=== PATIENT | male | born 1995 | race Caucasian/White ===

== ENCOUNTER 2019-02-18 07:49 | Emergency (ER) | payer MEDICAID ==
[2019-02-18] MEDS: IBUPROFEN 800 MG TABLET PO STA (08:34)
--- NOTE | 2019-02-18 08:36 | ED Physician Documentation ---
PD HPI CHEST PAIN - Stated complaint Stated Complaint: CP - Chief complaint Chief Complaint: Cardiac - History obtained from History obtained from: Patient - History of Present Illness Timing - onset: How many weeks ago (1) Timing - onset during: Other (hit chest on couch) Timing - duration: Weeks (1) Timing - details: Abrupt onset Pain level max: 6 Pain level now: 6 Quality: Sharp Location: Left chest Radiation: No: Jaw, Neck, Back, Abdominal, Left upper extremity, Right upper extremity, Other Improved by: Rest Worsened by: Movement, Palpation Associated symptoms: No: Shortness of air, Diaphoresis, Nausea, Vomiting, Feeling faint / dizzy, General Weakness, Palpitations, Cough Similar symptoms before: Has not had sx before Recently seen: Not recently seen - Additional information Additional information: states fell and hit chest "hard" on couch a week ago. chest wall tenderness since that time. Review of Systems Constitutional: denies: Fever, Chills Cardiac: denies: Palpitations Respiratory: denies: Cough GI: denies: Vomiting, Diarrhea Skin: denies: Rash Musculoskeletal: denies: Neck pain, Back pain Neurologic: denies: Headache PD PAST MEDICAL HISTORY - Past Medical History Past Medical History: Yes Psych: Anxiety, Post traumatic stress disorder - Past Surgical History Past Surgical History: No - Present Medications Home Medications: Ambulatory Orders Medication Instructions Recorded Confirmed Permethrin 5% Cream 60 gm TP ONCE #2 tub 05/27/13 diphenhydrAMINE HCl [Benadryl] 50 mg PO Q6HR PRN #30 capsule 05/27/13 Ibuprofen [Motrin] 800 mg PO Q8H PRN #30 tablet 02/18/19 - Allergies Allergies/Adverse Reactions: Allergies Allergy/AdvReac Type Severity Reaction Status Date / Time No Known Drug Allergies Allergy Verified 02/18/19 07:56 - Social History Does the pt smoke?: Yes Smoking Status: Current every day smoker Does the pt drink ETOH?: No Does the pt have substance abuse?: No Substance Use and Type: Marijuana - Immunizations Immunizations are current?: Yes - POLST Patient has POLST: No PD ED PE NORMAL - Vitals Vital signs reviewed: Yes - General General: Alert and oriented X 3, No acute distress, Well developed/nourished - HEENT HEENT: Atraumatic, PERRL, Moist mucous membranes - Neck Neck: Supple, no meningeal sign, No bony TTP - Cardiac Cardiac: RRR, Strong equal pulses - Respiratory Respiratory: No respiratory distress, Clear bilaterally - Abdomen Abdomen: Soft, Non tender, Non distended, Other (Palpation across the left anterior chest wall, approximately ribs 6 and 7. No crepitus. Reproduces his pain.) - Back Back: No spinal TTP - Derm Derm: Warm and dry - Extremities Extremities: Normal ROM s pain, No calf tenderness / cord - Neuro Neuro: Alert and oriented X 3 - Psych Psych: Normal mood, Normal affect Results - Vitals Vitals: Vital Signs - 24 hr 02/18/19 02/18/19 07:52 09:15 Temperature 36.7 C Heart Rate 62 70 Respiratory 15 15 Rate Blood Pressure 120/67 117/72 O2 Saturation 99 100 Oxygen O2 Source Room air - EKG (time done) 0800 Rate: Rate (enter#) (70) Rhythm: NSR Donie: Normal Intervals: Normal ID QRS: Normal Ischemia: ST elevation c/w repol - Rads (name of study) Ribs with chest x-ray Radiology: Prelim report reviewed, EMP read contemporaneously, See rad report (Normal) PD MEDICAL DECISION MAKING - ED course Complexity details: reviewed results, re-evaluated patient, considered differential, d/w patient Departure - Departure Disposition: 01 Home, Self Care Clinical Impression: Contusion of rib on left side Qualifiers: Encounter type: initial encounter Qualified Code(s): S20.212A - Contusion of left front wall of thorax, initial encounter Condition: Good Instructions: ED Contusion Chest Wall, ED Contusion Vs Minor Fx Rib Follow-Up: your,doctor in 1 week [Other] Prescriptions: Ibuprofen [Motrin] 800 mg PO Q8H PRN #30 tablet PRN Reason: PAIN &/OR FEVER Comments: Return if you worsen. Your xray does not show any acute abnormalities today. Discharge Date/Time: 02/18/19 09:39
--- NOTE | 2019-02-18 09:14 | XRAY Report ---
Reason: fall L rib pain Procedure Date: 02/18/2019 Accession Number: [id number] / [id number] Procedure: XR - Ribs w/PA Chest LT CPT Code: Final Report FULL RESULT: EXAM: LEFT RIB RADIOGRAPHY EXAM DATE: 02/18/2019 08:50 AM. CLINICAL HISTORY: Fall onto anterior left chest 1 week ago. Left rib pain. COMPARISON: None. TECHNIQUE: 1 view of the chest and 2 views of the ribs. FINDINGS: Bones: Normal. No fracture or bone lesion. Lungs: No focal opacities. No pneumothorax. No pleural effusions. Mediastinum: Heart and mediastinal contours are unremarkable. Other: None. IMPRESSION: 1. No acute fracture or bony lesion. 2. No pneumothorax. No pleural effusions. RADIA
[2019-02-18 09:17] VITALS: BP 117/72
== END 2019-02-18 09:39 | disposition home or self-care (01) ==
LOC: ED 07:49
DX: S20.212A Contusion of left front wall of thorax, initial encounter (principal); W19.XXXA Unspecified fall, initial encounter; W22.03XA Walked into furniture, initial encounter; F17.200 Nicotine dependence, unspecified, uncomplicated
CPT/HCPCS: 71101; 93005; 99283; 99284; A9270

== ENCOUNTER 2019-02-24 09:52 | Emergency (ER) | payer MEDICAID ==
[2019-02-24 10:02] VITALS: BP 132/74
--- NOTE | 2019-02-24 10:06 | ED Physician Documentation ---
PD HPI URI - Stated complaint Stated Complaint: COLD SX - Chief complaint Chief Complaint: Heent - History obtained from History obtained from: Patient - History of Present Illness Timing - onset: How many weeks ago (few) Timing duration: Weeks (few) Timing details: Gradual onset (started with head cold symptoms and then improved to just persistent sinus pressure right side, and some purulent nasal drainage, sore throat and feeling right ear pressure.) Associated symptoms: Nasal congestion, Sinus pain, Sore throat. No: Fever, Dry cough, NVD Contributing factors: No: Sick contact, Travel, Immunocompromised Similar symptoms before: Has not had sx before Review of Systems Constitutional: denies: Fever Ears: reports: Ear pain (right) Nose: reports: Congestion, Sinus pressure / pain Throat: reports: Sore throat. denies: Oral lesions / sores Respiratory: denies: Cough GI: denies: Nausea, Vomiting, Diarrhea Skin: denies: Rash Neurologic: denies: Headache PD PAST MEDICAL HISTORY - Past Medical History Past Medical History: No Psych: Anxiety, Post traumatic stress disorder - Past Surgical History Past Surgical History: No - Present Medications Home Medications: Ambulatory Orders Medication Instructions Recorded Confirmed Cephalexin [Keflex] 500 mg PO TID #21 capsule 02/24/19 Ibuprofen [Motrin] 600 mg PO TID PRN #25 tab 02/24/19 dexAMETHasone [Decadron] 4 mg PO DAILY #5 tablet 02/24/19 - Allergies Allergies/Adverse Reactions: Allergies Allergy/AdvReac Type Severity Reaction Status Date / Time No Known Drug Allergies Allergy Verified 02/24/19 09:57 - Social History Does the pt smoke?: Yes Smoking Status: Current every day smoker Does the pt drink ETOH?: No Does the pt have substance abuse?: No - Immunizations Immunizations are current?: Yes - POLST Patient has POLST: No PD ED PE NORMAL - Vitals Vital signs reviewed: Yes - General General: Alert and oriented X 3, No acute distress, Well developed/nourished - HEENT HEENT: Ears normal, Moist mucous membranes, Pharynx benign - Neck Neck: Supple, no meningeal sign, No adenopathy - Cardiac Cardiac: RRR, No murmur - Respiratory Respiratory: Clear bilaterally - Derm Derm: Normal color, Warm and dry Results - Vitals Vitals: Vital Signs - 24 hr 02/24/19 09:57 Temperature 37.3 C Heart Rate 106 H Respiratory 18 Rate Blood Pressure 132/74 H O2 Saturation 100 Oxygen O2 Source Room air PD MEDICAL DECISION MAKING - ED course Complexity details: considered differential (had URI and then seems mainly sinus symptoms now persistent. Consider likely secondary bacterial transformation. ), d/w patient Departure - Departure Disposition: 01 Home, Self Care Clinical Impression: Acute sinusitis Qualifiers: Sinusitis location: unspecified location Recurrence: non-recurrent Qualified Code(s): J01.90 - Acute sinusitis, unspecified Condition: Stable Record reviewed to determine appropriate education?: Yes Instructions: ED Sinusitis Abx Tx Follow-Up: Geovany Monteiro MD [Primary Care Provider] - Prescriptions: Cephalexin [Keflex] 500 mg PO TID #21 capsule dexAMETHasone [Decadron] 4 mg PO DAILY #5 tablet Ibuprofen [Motrin] 600 mg PO TID PRN #25 tab PRN Reason: Pain Comments: Stay well-hydrated. Use some saline nasal spray or water drops nasally a few times a day to promote sinus drainage. Cephalexin antibiotic 3 times a day for a week for presumed bacterial infection. Use Decadron steroid for inflammation for the throat and sinuses to help with the symptoms. Add ibuprofen 3 times a day as needed for fevers or pains. Recheck if not improving well over the next several days and resolved by a week. Discharge Date/Time: 02/24/19 10:43
[2019-02-24] MEDS ORDERED: DEXAMETHASONE 10 MG/ML VIAL PO STA (10:33)
[2019-02-24] MEDS ORDERED: CHERRY SYRUP 10 ML UDC PO ONE (10:33)
[2019-02-24] MEDS ORDERED: IBUPROFEN 600 MG TABLET PO STA (10:33)
[2019-02-24] MEDS ORDERED: cephALEXin 250 MG CAPSULE PO STA (10:33)
== END 2019-02-24 10:43 | disposition home or self-care (01) ==
LOC: ED 09:52
DX: J01.90 Acute sinusitis, unspecified (principal); F17.200 Nicotine dependence, unspecified, uncomplicated
CPT/HCPCS: 99283; 99284; A9270

== ENCOUNTER 2019-03-08 18:59 | Emergency (ER) | payer MEDICAID ==
--- NOTE | 2019-03-08 21:26 | ED Physician Documentation ---
PD HPI SKIN - Stated complaint Stated Complaint: RASH ON FACE - Chief complaint Chief Complaint: General - History obtained from History obtained from: Patient - History of Present Illness Timing - onset: How many weeks ago (approximately 1.5-2 weeks ago) Timing - details: Gradual onset Pain level now: 0 Location: Face Quality / character: Itchy, Painful, Discolored, Raised Associated symptoms: No: Fever Recently seen: Emergency Dept - Additional information Additional information: c/o facial rash that first appeared 1-2 weeks ago. He has been to this ED twice already this month (makayla is his third [facility] ED visit this month). He recently completed course of keflex ("for my cold", per patient), and the rash seemed to have improved, possibly resolved ("I don't remember seeing it", per patient). But past few days, patient had return of red, raised, itchy, burning facial rash. Review of Systems Constitutional: denies: Fever Skin: reports: Rash PD PAST MEDICAL HISTORY - Past Medical History Past Medical History: Yes Psych: Anxiety, Post traumatic stress disorder - Past Surgical History Past Surgical History: No - Present Medications Home Medications: Ambulatory Orders Medication Instructions Recorded Confirmed Antianxiety 03/08/19 Doxycycline Hyclate 100 mg PO BID #20 capsule 03/08/19 Mupirocin 1 film TP BID #1 oint...g. 03/08/19 - Allergies Allergies/Adverse Reactions: Allergies Allergy/AdvReac Type Severity Reaction Status Date / Time No Known Drug Allergies Allergy Verified 03/08/19 19:07 - Social History Does the pt smoke?: Yes Smoking Status: Current every day smoker Does the pt drink ETOH?: No Does the pt have substance abuse?: No - Immunizations Immunizations are current?: Yes - POLST Patient has POLST: No PD ED PE NORMAL - Vitals Vital signs reviewed: Yes - General General: Alert and oriented X 3, No acute distress, Well developed/nourished - HEENT HEENT: Moist mucous membranes, Pharynx benign, Other (no oral lesions/no enanthem) PD ED PE EXPANDED - Derm Derm: Rash (facial rash: erythema with faint margins, raised, confluent, bilateral and mild honey/gold-colored crusting noted adjacent to nares and corners (lateral fissures) of mouth, no enanthem) Results - Vitals Vitals: Vital Signs - 24 hr 03/08/19 03/08/19 19:07 21:55 Temperature 36.7 C 36.7 C Heart Rate 83 68 Respiratory 16 16 Rate Blood Pressure 137/60 H 118/72 O2 Saturation 97 100 Oxygen O2 Source Room air PD MEDICAL DECISION MAKING - ED course Complexity details: considered differential, d/w patient Departure - Departure Disposition: 01 Home, Self Care Clinical Impression: Impetigo Condition: Good Instructions: ED Staph Infec Abx Tx Only Follow-Up: Geovany Monteiro MD [Primary Care Provider] - Within 1 week Prescriptions: Doxycycline Hyclate 100 mg PO BID #20 capsule Mupirocin 1 film TP BID #1 oint...g. Discharge Date/Time: 03/08/19 21:55
[2019-03-08] MEDS ORDERED: DOXYCYCLINE 100 MG TABLET PO STA (21:46)
[2019-03-08 22:31] VITALS: BP 118/72
== END 2019-03-08 21:55 | disposition home or self-care (01) ==
LOC: ED 18:59
DX: L01.00 Impetigo, unspecified (principal); F17.200 Nicotine dependence, unspecified, uncomplicated
CPT/HCPCS: 99282; 99283; A9270

== ENCOUNTER 2019-03-19 09:24 | Emergency (ER) | payer MEDICAID ==
[2019-03-19 09:32] VITALS: BP 136/66
--- NOTE | 2019-03-19 10:48 | ED Physician Documentation ---
PD HPI SKIN - Stated complaint Stated Complaint: RASH ON FACE - Chief complaint Chief Complaint: Wound - History obtained from History obtained from: Patient - History of Present Illness Timing - onset: How many days ago (couple) Timing - duration: Days (had had rash on face Dx as impetigo and Rx with Doxycycline. IMproved but not completely and finished abx 3 days ago, with w orsening rash again the past day.) Timing - details: Gradual onset Location: Face Quality / character: Painful, Draining (slightly). No: Itchy Associated symptoms: No: Fever, N/V/D Similar symptoms before: Diagnosis (impetigo) Review of Systems Constitutional: denies: Fever, Chills Nose: denies: Rhinorrhea / runny nose, Congestion Throat: denies: Sore throat Respiratory: denies: Cough GI: denies: Nausea, Vomiting PD PAST MEDICAL HISTORY - Past Medical History Cardiovascular: Hypertension Respiratory: None Neuro: Other Endocrine/Autoimmune: None GI: None : None HEENT: None Psych: Anxiety, Post traumatic stress disorder Derm: Other Other Past Medical History: Hx of Staph. PTSD - Past Surgical History Past Surgical History: No Derm: Other - Present Medications Home Medications: Ambulatory Orders Medication Instructions Recorded Confirmed Antianxiety 03/08/19 Doxycycline Hyclate 100 mg PO BID #20 capsule 03/08/19 Mupirocin 1 film TP BID #1 oint...g. 03/08/19 Sulfamethox/Trimeth 800/160 1 each PO BID #14 tablet 03/19/19 [Bactrim Ds 800/160] - Allergies Allergies/Adverse Reactions: Allergies Allergy/AdvReac Type Severity Reaction Status Date / Time No Known Drug Allergies Allergy Verified 03/08/19 19:07 - Social History Does the pt smoke?: Yes Smoking Status: Current some day smoker Does the pt drink ETOH?: No Does the pt have substance abuse?: No Substance Use and Type: Marijuana - Immunizations Immunizations are current?: Yes - POLST Patient has POLST: No PD ED PE NORMAL - Vitals Vital signs reviewed: Yes - General General: Alert and oriented X 3, No acute distress, Well developed/nourished - HEENT HEENT: Ears normal, Moist mucous membranes, Pharynx benign, Other (nares normal) - Derm Derm: Normal color, Warm and dry, Other (patchy slightly raised bumpy rash on side of mouth, cheek and some to lateral forehead. No discharge noted. ) Results - Vitals Vitals: Vital Signs - 24 hr 03/19/19 09:28 Temperature 36.8 C Heart Rate 76 Respiratory 16 Rate Blood Pressure 136/66 H O2 Saturation 99 Oxygen O2 Source Room air PD MEDICAL DECISION MAKING - ED course Complexity details: reviewed old records, considered differential, d/w patient Departure - Departure Disposition: Home, Self Care Clinical Impression: Impetigo due to Staphylococcus aureus Condition: Stable Record reviewed to determine appropriate education?: Yes Instructions: ED Impetigo Ch Follow-Up: Geovany Monteiro MD [Primary Care Provider] - Prescriptions: Sulfamethox/Trimeth 800/160 [Bactrim Ds 800/160] 1 each PO BID #14 tablet Comments: Continue cleansing the face which is soap and water and applying the mupirocin topical antibiotic once or twice daily. Also use a Q-tip to apply it just inside the rim of each nostril. Bactrim antibiotic twice daily for a week. Recheck if not fully improved over the next several days to a week and return sooner if worsening. Discharge Date/Time: 03/19/19 11:26
[2019-03-19] MEDS ORDERED: SULFAMETH/TRIMETH DS 800/160 MG TABLET PO STA (11:07)
== END 2019-03-19 11:26 | disposition home or self-care (01) ==
LOC: ED 09:24
DX: L01.00 Impetigo, unspecified (principal); B95.61 Methicillin susceptible Staphylococcus aureus infection as the cause of diseases classified elsewhere; I10 Essential (primary) hypertension; F17.200 Nicotine dependence, unspecified, uncomplicated
CPT/HCPCS: 99282; 99283; A9270

== ENCOUNTER 2019-03-27 03:04 | Emergency (ER) | payer MEDICAID ==
--- NOTE | 2019-03-27 05:19 | ED Physician Documentation ---
PD HPI SKIN - Stated complaint Stated Complaint: FACE INFECTION - Chief complaint Chief Complaint: Wound - History obtained from History obtained from: Patient - History of Present Illness Timing - onset: How many weeks ago (3-4) Timing - duration: Weeks Timing - details: Gradual onset, Still present Location: Face Quality / character: Burning, Discolored, Raised Associated symptoms: Facial swelling. No: Fever, Myalgias, Dyspnea Contributing factors: Unknown Similar symptoms before: Diagnosis (impetigo) Recently seen: Emergency Dept - Additional information Additional information: 5th [facility] ED visit in past 6 weeks. this is his 3rd visit for c/o facial rash for which I saw him 03/08. I suspected impetigo and rx doxycycline and mupirocin. He says he took/used these as prescribed but had little improvement. He returned 03/19 for same, was prescribed bactrim. he returns due to ongoing facial rash. he says he was evaluated for this once by his PMD few weeks ago and was told it was a fungal infection, was prescribed a medication which patient says was too expensive for him to fill (and thus does not know what medication it was nor whether it was topical or oral medication). Review of Systems Constitutional: reports: Reviewed and negative Eyes: denies: Discharge, Irritation Nose: reports: Reviewed and negative Throat: denies: Sore throat Skin: reports: Rash PD PAST MEDICAL HISTORY - Past Medical History Past Medical History: Yes Cardiovascular: Hypertension Respiratory: None Neuro: Other Endocrine/Autoimmune: None GI: None : None HEENT: None Psych: Anxiety, Post traumatic stress disorder Derm: Other - Past Surgical History Past Surgical History: Yes Derm: Other - Present Medications Home Medications: Ambulatory Orders Medication Instructions Recorded Confirmed Antianxiety 03/08/19 Clindamycin HCl [Clindamycin 300MG 300 mg PO Q6H #28 capsule 03/27/19 CAP] - Allergies Allergies/Adverse Reactions: Allergies Allergy/AdvReac Type Severity Reaction Status Date / Time No Known Drug Allergies Allergy Verified 03/27/19 03:15 - Social History Does the pt smoke?: Yes Smoking Status: Current every day smoker Does the pt drink ETOH?: No Does the pt have substance abuse?: No - Immunizations Immunizations are current?: Yes - POLST Patient has POLST: No PD ED PE NORMAL - Vitals Vital signs reviewed: Yes - General General: Alert and oriented X 3, No acute distress, Well developed/nourished - HEENT HEENT: Moist mucous membranes, Pharynx benign - Neck Neck: Supple, no meningeal sign PD ED PE EXPANDED - Derm Derm: Rash (Confluent, raised, erythematous rash on face; symmetric, with boundaries of brow (spares forehead), bilateral zygomatic arches, and chin. There is scant discharge from skin crease of chin; discharge does not appear purulent but has honey-color s/o impetigo) Results - Vitals Vitals: Oxygen O2 Source Room air PD MEDICAL DECISION MAKING - ED course Complexity details: considered differential, d/w patient ED course: Ongoing facial rash. appearance is s/o erysipelas although he lacks systemic signs/symptoms, and there is scant discharge s/o impetigo. the antibiotic coverage thus far was appropriate for either of these diagnoses; possible explanations include noncompliance, resistant organism, or other diagnosis. will trial a third antibiotic from different pharmacologic class of abx. emergent testing at this time unlikely to lead to alternative diagnosis, and H+P do not suggest emergent process that would benefit from nor necessitate inpatient treatment. I encouraged him to return if worse, and to monitor for fevers (with a thermometer, as opposed to subjectively and return if he develops fevers over 100.3. I also instructed him to follow up with PMD as soon as can be arranged. Departure - Departure Disposition: 01 Home, Self Care Clinical Impression: Impetigo Condition: Good Instructions: ED Staph Infec Abx Tx Only Follow-Up: Geovany Monteiro MD [Primary Care Provider] - (Call to arrange for next available appointment) Prescriptions: Clindamycin HCl [Clindamycin 300MG CAP] 300 mg PO Q6H #28 capsule Discharge Date/Time: 03/27/19 05:52
[2019-03-27] MEDS ORDERED: CLINDAMYCIN 150 MG CAPSULE PO STA (05:41)
[2019-03-27 05:52] VITALS: BP 103/83
== END 2019-03-27 05:52 | disposition home or self-care (01) ==
LOC: ED 03:04
DX: L01.00 Impetigo, unspecified (principal); I10 Essential (primary) hypertension; F17.200 Nicotine dependence, unspecified, uncomplicated
CPT/HCPCS: 99282; 99283; A9270

== ENCOUNTER 2019-08-03 14:15 | Emergency (ER) | payer MEDICAID ==
[2019-08-03] MEDS ORDERED: CHERRY SYRUP 10 ML UDC PO ONE (16:12)
[2019-08-03] MEDS ORDERED: DEXAMETHASONE 10 MG/ML VIAL PO STA (16:12)
--- NOTE | 2019-08-03 16:14 | ED Physician Documentation ---
PD HPI HEENT - Stated complaint Stated Complaint: SINUS PAIN - Chief complaint Chief Complaint: Heent - History obtained from History obtained from: Patient - History of Present Illness Timing - onset: How many weeks ago (2) Timing - duration: Weeks (2) Timing - details: Gradual onset, Still present Location: Sinuses Improves: Medication Associated symptoms: Congestion, Rhinorrhea, Facial swelling, Cough. No: Fever Similar symptoms before: Diagnosis (sinusitis) Recently seen: Not recently seen - Additional information Additional information: Previously well 23-year-old male who has had a prior sinus infection has developed symptoms again of nasal burning and congestion he is blowing some yellow and green phlegm out of his nose and feels that this is not just a normal cold it is gone on long and has the burning and yellow discharge. He denies any pain to the maxillary or frontal sinuses denies any sore throat or trouble breathing. He also indicates that he has not had seasonal allergic rhinitis in his life. Review of Systems Constitutional: denies: Fever Eyes: denies: Decreased vision Ears: denies: Ear pain Nose: reports: Rhinorrhea / runny nose, Congestion, Sinus pressure / pain Throat: denies: Sore throat Cardiac: denies: Chest pain / pressure Respiratory: reports: Cough. denies: Dyspnea GI: denies: Vomiting PD PAST MEDICAL HISTORY - Past Medical History Cardiovascular: Hypertension Respiratory: None Neuro: Other Endocrine/Autoimmune: None GI: None : None HEENT: None Psych: Anxiety, Post traumatic stress disorder Derm: Other - Past Surgical History Past Surgical History: Yes Derm: Other - Present Medications Home Medications: Ambulatory Orders Medication Instructions Recorded Confirmed Amox/Clav 875/125 [Augmentin] 1 each PO Q12H #20 tablet 08/03/19 - Allergies Allergies/Adverse Reactions: Allergies Allergy/AdvReac Type Severity Reaction Status Date / Time No Known Drug Allergies Allergy Verified 08/03/19 14:30 - Social History Does the pt smoke?: Yes Smoking Status: Current every day smoker Does the pt drink ETOH?: No Does the pt have substance abuse?: No - Immunizations Immunizations are current?: Yes - POLST Patient has POLST: No PD ED PE NORMAL - Vitals Vital signs reviewed: Yes (normal ) - General General: Alert and oriented X 3, No acute distress, Well developed/nourished - HEENT HEENT: Atraumatic, PERRL, EOMI, Other (Both TMs are dull erythematous with flattening of the umbo there is no maxillary or frontal sinus point tenderness. There is some mild mid facial swelling and tenderness to the nose itself.) - Neck Neck: Supple, no meningeal sign, No bony TTP - Cardiac Cardiac: RRR, No murmur - Respiratory Respiratory: No respiratory distress, Clear bilaterally - Abdomen Abdomen: Soft, Non tender - Derm Derm: Normal color, Warm and dry, No rash - Extremities Extremities: No deformity, No edema - Neuro Neuro: Alert and oriented X 3, safety specialist 2-12 intact, No motor deficit, No sensory deficit, Normal speech Eye Opening: Spontaneous Motor: Obeys Commands Verbal: Oriented GCS Score: 15 - Psych Psych: Normal mood, Normal affect Results - Vitals Vitals: Vital Signs - 24 hr 08/03/19 14:27 Temperature 36.7 C Heart Rate 85 Respiratory 18 Rate Blood Pressure 114/59 L O2 Saturation 98 Oxygen O2 Source Room air PD MEDICAL DECISION MAKING - ED course Complexity details: reviewed old records, considered differential, d/w patient ED course: 23-year-old male again with sinus symptoms is administered dexamethasone 10 mg orally we will place him on some Augmentin and I have indicated to the patient that he likely has some form of nasal allergy and I have asked him to use nasal court if he has continued congestion following treatment. Departure - Departure Disposition: 01 Home, Self Care Clinical Impression: Acute sinusitis Qualifiers: Sinusitis location: ethmoidal Recurrence: recurrent Qualified Code(s): J01.21 - Acute recurrent ethmoidal sinusitis Condition: Stable Instructions: ED Sinusitis Abx Tx Follow-Up: Geovany Monteiro MD [Primary Care Provider] - Prescriptions: Amox/Clav 875/125 [Augmentin] 1 each PO Q12H #20 tablet Comments: You will likely good good relief of your symptoms with today's treatment. If you develop nasal congestion following treatment my recommendation is to use nasal-los available [id number].
[2019-08-03 16:20] VITALS: BP 107/50
== END 2019-08-03 16:24 | disposition home or self-care (01) ==
LOC: ED 14:15
DX: J01.21 Acute recurrent ethmoidal sinusitis (principal); I10 Essential (primary) hypertension; F17.200 Nicotine dependence, unspecified, uncomplicated
CPT/HCPCS: 99282; 99284

== ENCOUNTER 2020-02-17 15:26 | Outpatient (CLI) | payer MEDICAID | END 2020-02-17 15:27 | disposition home or self-care (01) | LOC: COV 15:26 | PROVIDERS: ATTEND Family Medicine | DX: R06.02 Shortness of breath (principal); M79.10 Myalgia, unspecified site; R53.83 Other fatigue; R09.81 Nasal congestion; J34.89 Other specified disorders of nose and nasal sinuses; Z20.828 Contact with and (suspected) exposure to other viral communicable diseases ==

== ENCOUNTER 2020-03-12 21:51 | Emergency (ER) | payer MEDICAID ==
[2020-03-12 21:57] VITALS: BP 131/68
--- NOTE | 2020-03-12 22:41 | ED Physician Documentation ---
History of Present Illness - Stated complaint Stated Complaint: NOSE PX - Chief complaint Chief Complaint: Heent - History obtained from History obtained from: Patient - Additonal information Additional information: Patient comes emergency department for chief complaint of clear rhinorrhea for 6 months. He states he just does not feel right and knows something is wrong. He states he feels tension in the muscles of his neck and that his whole body feels as though something is very wrong with in it. Patient cannot be more specific about this. He has not had fevers or chills. No nausea or vomiting. He states he lives in his car in the [facility] [place]. He smokes cigarettes on a daily basis. He states when he really needs some steroids to cure what he believes is an infection. He states that when he had a runny nose before, he was given steroids and the runny nose got better. Patient states he seen his doctor for this problem and that they never tell him what is wrong. No other complaints at this time. Review of Systems Ten Systems: 10 systems reviewed and negative Constitutional: reports: Reviewed and negative Eyes: reports: Reviewed and negative Ears: reports: Reviewed and negative Nose: reports: Rhinorrhea / runny nose Throat: reports: Reviewed and negative Cardiac: reports: Reviewed and negative Respiratory: reports: Reviewed and negative GI: reports: Reviewed and negative : reports: Reviewed and negative Skin: reports: Reviewed and negative Musculoskeletal: reports: Neck pain Neurologic: reports: Reviewed and negative Psychiatric: reports: Reviewed and negative Endocrine: reports: Reviewed and negative Immunocompromised: reports: Reviewed and negative PD PAST MEDICAL HISTORY - Past Medical History Cardiovascular: Hypertension Respiratory: None Neuro: Other Endocrine/Autoimmune: None GI: None : None HEENT: None Psych: Anxiety, Post traumatic stress disorder Derm: Other - Past Surgical History Past Surgical History: Yes Derm: Other - Present Medications Home Medications: Ambulatory Orders Medication Instructions Recorded Confirmed Amox/Clav 875/125 [Augmentin] 1 each PO Q12H #20 tablet 08/03/19 - Allergies Allergies/Adverse Reactions: Allergies Allergy/AdvReac Type Severity Reaction Status Date / Time No Known Drug Allergies Allergy Verified 03/12/20 21:53 - Social History Does the pt smoke?: Yes Smoking Status: Current every day smoker Does the pt drink ETOH?: No Does the pt have substance abuse?: No - Immunizations Immunizations are current?: Yes - POLST Patient has POLST: No PD ED PE NORMAL - Vitals Vital signs reviewed: Yes - General General: Alert and oriented X 3, No acute distress, Well developed/nourished - HEENT HEENT: Atraumatic, PERRL, EOMI, Moist mucous membranes - Neck Neck: Supple, no meningeal sign, No bony TTP, No adenopathy, Other (Mild bilateral muscular tenderness. Patient has full active range of motion of his neck as noted during our conversation.) - Cardiac Cardiac: RRR, No murmur, Strong equal pulses - Respiratory Respiratory: No respiratory distress, Clear bilaterally - Abdomen Abdomen: Soft, Non tender, Non distended - Derm Derm: Normal color, Warm and dry, No rash - Extremities Extremities: No deformity, No edema, No calf tenderness / cord - Neuro Neuro: Alert and oriented X 3, motor vehicle examiner 2-12 intact, No motor deficit, No sensory deficit, Normal speech - Psych Psych: Normal mood, Normal affect Results - Vitals Vitals: Vital Signs - 24 hr 03/12/20 21:54 Temperature 36.5 C Heart Rate 85 Respiratory 14 Rate Blood Pressure 131/68 H O2 Saturation 99 Oxygen O2 Source Room air PD MEDICAL DECISION MAKING - ED course Complexity details: considered differential, d/w patient ED course: It was not clear why the patient had come to the emergency department for these longstanding and clearly non-emergent symptoms. The patient was already estab lished with a primary care physician though he indicated that he did not feel his primary care physician was taking his nasal symptoms seriously. I discussed with the patient that there is no justification for a steroid at this point in time. The patient, despite this, was very fixated on the idea of getting a steroid and very insistent that it would fix his symptoms. I have pointed out to the patient that his symptoms are clearly chronic, having lasted at least 6 months, and that a 3 to 5-day course of steroids is not likely to have a long- term effect on the patient's ongoing rhinorrhea. I discussed with the patient that the most likely causative factor is his continuing to smoke tobacco, though there may be an allergic component, as well. The patient is very resistant to this idea and argued repeatedly that the smoking had nothing to do with his chronic rhinorrhea. There is no evidence of a bacterial process, as the patient has no facial pain and no fever, nor does he have thick discolored rhinorrhea. As such, I have advised the patient that neither steroids nor antibiotics are appropriate in the setting. The patient is advised that this is a primary care issue and that he needs follow-up with his primary care physician about his various complaints. We have discussed the usual indications for return. Departure - Departure Disposition: 01 Home, Self Care Clinical Impression: Rhinorrhea Condition: Stable Instructions: Smoking Health Effects Comments: You do not have an emergent condition tonight you may have allergies or you may have a runny nose for months on end because the chemicals and cigarette smoke are irritating to your mucous membranes. We will not be treating you with a steroid for months and months of symptoms. Your last visit to the emergency department was a completely different situation, as the medical record bears out. Infections do not last for 6 months or more and this is not an infection. This is a problem which needs to be addressed by you with your primary care physician, not in the emergency department please call your doctors office to follow-up for further evaluation if you desire. Discharge Date/Time: 03/12/20 22:47
== END 2020-03-12 22:47 | disposition home or self-care (01) ==
LOC: ED 21:51
DX: J34.89 Other specified disorders of nose and nasal sinuses (principal); F17.210 Nicotine dependence, cigarettes, uncomplicated; I10 Essential (primary) hypertension
CPT/HCPCS: 99281; 99284

== ENCOUNTER 2020-06-14 13:03 | Outpatient (CLI) | payer MEDICAID | END 2020-06-14 13:04 | disposition home or self-care (01) | LOC: COV 13:03 | PROVIDERS: ATTEND Family Medicine | DX: R09.81 Nasal congestion (principal); Z20.822 Contact with and (suspected) exposure to COVID-19 ==